=== PATIENT | male | born 1950 | race Caucasian/White ===

== ENCOUNTER 2019-07-21 15:21 | Emergency (ER) | payer OTHER ==
[~2019-07-21] VITALS: Ht 175.2 cm; Wt 83.9 kg
[2019-07-21 16:00] LABS: BASO # 0.1 10*3/uL (0.0-0.1); BASO % 0.3 % (0.0-1.0); EOS % 0.1 % (1.0-4.0); HEMATOCRIT 48.1 % (42.0-52.0); LYMPH # 1.3 10*3/uL (1.3-4.4); LYMPH % 8.7 % (27.0-41.0); MEAN CELL VOLUME 88.4 fl (80.0-94.0); MEAN CORPUSCULAR HGB 29.2 pg (27.0-31.0); MEAN CORPUSCULAR HGB CONC 33.1 g/dl (33.0-37.0); MEAN PLATELET VOLUME 9.4 fl (9.6-12.3); MONO # 1.1 10*3/uL (0.1-1.0); MONO % 7.2 % (3.0-9.0); NEUT # 12.1 10*3/uL (2.3-7.9); NEUT % 82.9 % (47.0-73.0); PLATELET COUNT AUTOMATED 241 10*3/uL (130-400); RED BLOOD COUNT 5.44 10*6/uL (4.50-5.90); WHITE BLOOD COUNT 14.7 10*3/uL (4.8-10.8)
[2019-07-21 16:11] LABS: ACT PARTIAL THROMBO TIME 22.8 SECONDS (20.0-32.1)
[2019-07-21 16:17] LABS: ALBUMIN 3.8 gm/dl (3.1-4.5); ALKALINE PHOSPHATASE 41 U/L (45-117); BUN 28 mg/dl (7-24); CHLORIDE 112 mmol/L (98-107); CREATININE 1.52 mg/dL (0.70-1.30); POTASSIUM 4.3 mmol/L (3.5-5.1); SGOT/AST 18 IU/L (3-35); SGPT/ALT 30 U/L (12-78); SODIUM 145 mmol/L (136-145); TOTAL PROTEIN 7.2 gm/dL (6.4-8.2)
[2019-07-21 16:24] LABS: TROPONIN I < 0.015 ng/ml (<0.045)
== END 2019-07-21 18:06 | disposition home or self-care (01) ==
LOC: ED 15:21
PROVIDERS: Emergency Medicine
DX: R07.9 Chest pain, unspecified (principal); I10 Essential (primary) hypertension